=== PATIENT | female | born 1970 | race Caucasian/White ===

== ENCOUNTER 2016-04-17 10:54 | Emergency (ER) | payer MEDICAID ==
--- NOTE | 2016-04-17 11:24 | Emergency Department Record ---
History of Present Illness - General Chief complaint: Pain Stated complaint: RIB PAIN Time Seen by Provider: 04/17/16 11:16 Source: Patient, RN notes reviewed Mode of Arrival: Ambulatory - History of Present Illness Initial comments: neck and back pain and left lower leg pain. this pain started two days ago and she used norco twice aday for back pain. Onset/Timin -: Days(s) Location: Right, Other Severity scale (1-10): 10 Quality: Sharp Consistency: Constant Improves with: Nothing Worsens with: Other Associated Symptoms: Denies other symptoms - Related Data Previous Rx's Medication Instructions Recorded Naproxen [Naprosyn] 500 mg PO Q12H #20 tab. 04/17/16 Allergies Allergy/AdvReac Type Severity Reaction Status Date / Time penicillin V Allergy Severe ANAPHYLAXIS Unverified 04/07/16 08:12 Travel Screening - Travel/Exposure Within Last 30 Days Have you traveled within the last 30 days?: No Review of Systems Reviewed: No additional complaints except as noted below Constitutional: Reports: As per HPI. Denies: Chills, Fever, Malaise, Night sweats, Weakness, Weight change Eyes: Reports: As per HPI. Denies: Eye discharge, Eye pain, Photophobia, Vision change ENT: Reports: As per HPI. Denies: Congestion, Dental pain, Ear pain, Epistaxis , Hearing loss, Throat pain Respiratory: Reports: As per HPI. Denies: Cough, Dyspnea, Hemoptysis, Stridor, Wheezes Cardiovascular: Reports: As per HPI. Denies: Arrhythmia, Chest pain, Dyspnea on exertion, Edema, Murmurs, Orthopnea, Palpitations, Paroxysmal nocturnal dyspnea, Rheumatic Fever, Syncope Endocrine: Reports: As per HPI. Denies: Fatigue, Heat or cold intolerance, Polydipsia, Polyuria Gastrointestinal: Reports: As per HPI. Denies: Abdominal pain, Constipation, Diarrhea, Hematemesis, Hematochezia, Melena, Nausea, Vomiting Genitourinary: Reports: As per HPI. Denies: Abnormal menses, Discharge, Dyspareunia, Dysuria, Frequency, Hematuria, Incontinence, Retention, Urgency Musculoskeletal: Reports: As per HPI, Back pain. Denies: Arthralgia, Gout, Joint swelling, Myalgia, Neck pain Skin: Reports: As per HPI. Denies: Bruising, Change in color, Change in hair/ nails, Lesions, Pruritus, Rash Neurological: Reports: As per HPI. Denies: Abnormal gait, Confusion, Headache, Numbness, Paresthesias, Seizure, Tingling, Tremors, Vertigo, Weakness Psychiatric: Reports: As per HPI. Denies: Anxiety, Auditory hallucinations, Depression, Homicidal thoughts, Suicidal thoughts, Visual hallucinations Hematological/Lymphatic: Reports: As per HPI. Denies: Anemia, Blood Clots, Easy bleeding, Easy bruising, Swollen glands Past Medical History - SOCIAL HISTORY Smoking Status: Heavy tobacco smoker (>10/day) Alcohol Use: None Drug Use: None - RESPIRATORY Hx Respiratory Disorders: Yes Hx COPD: Yes - CARDIOVASCULAR Hx Cardio Disorders: Yes Hx Hypertension: Yes - NEURO Hx Neuro Disorders: Yes Hx CVA: Yes - GI Hx GI Disorders: No - Hx Genitourinary Disorders: No - ENDOCRINE Hx Endocrine Disorders: Yes Hx Thyroid Disease: Yes (hypothyroid) - MUSCULOSKELETAL Hx Musculoskeletal Disorders: Yes Hx Back Injury: Yes - PSYCH Hx Psych Problems: Yes Hx Anxiety: Yes Hx Behavior Problems: Yes (Bipolar as per [facility]) Hx Depression: Yes Comment:: Alcoholism - HEMATOLOGY/ONCOLOGY Hx Hematology/Oncology Disorders: No Family Medical History Any Significant Family History?: Yes Hx Cancer: Father Hx Diabetes: Grandparents Hx Heart Disease: Father Hx HTN: Father Physical Exam - General General Appearance: Alert, Oriented x3, Cooperative, No acute distress - Head Head exam: Normal inspection - Eye Eye exam: Normal appearance, PERRL Pupils: Normal accommodation - ENT ENT exam: Normal exam, Mucous membranes moist, Normal external ear exam, Normal orophraynx, TM's normal bilaterally Ear exam: Normal external inspection. negative: External canal tenderness Nasal Exam: Normal inspection. negative: Discharge, Sinus tenderness Mouth exam: Normal external inspection, Tongue normal Teeth exam: Normal inspection. negative: Dental caries Throat exam: Normal inspection. negative: Tonsillar erythema, Tonsillar exudate - Neck Neck exam: Normal inspection, Full ROM, Tenderness (muscles on the left side of neck ). negative: Lymphadenopathy, Meningismus - Respiratory Respiratory exam: Normal lung sounds bilaterally. negative: Respiratory distress - Cardiovascular Cardiovascular Exam: Regular rate, Normal rhythm, Normal heart sounds - GI/Abdominal GI/Abdominal exam: Soft, Normal bowel sounds. negative: Tenderness - Rectal Rectal exam: Deferred - exam: Deferred - Extremities Extremities exam: Normal inspection, Full ROM, Normal capillary refill. negative: Tenderness - Back Back exam: Reports: Normal inspection, Full ROM, Muscle spasm, Tenderness ( left lumbar pain and worse with palpation). Denies: Rash noted - Neurological Neurological exam: Alert, Normal gait, Oriented X3, Reflexes normal - Psychiatric Psychiatric exam: Normal affect, Normal mood - Skin Skin exam: Dry, Intact, Normal color, Warm Course Vital Signs 04/17/16 10:59 Temperature 98.0 F Pulse Rate 109 H Respiratory 20 Rate Blood Pressure 140/96 Pulse Ox 96 Medical Decision Making - Lab Data Result diagrams: 04/17/16 11:40 Disposition Clinical Impression: Lumbar strain Qualifiers: Encounter type: initial encounter Qualified Code(s): S39.012A - Strain of muscle, fascia and tendon of lower back, initial encounter Cervical strain Qualifiers: Encounter type: initial encounter Qualified Code(s): S16.1XXA - Strain of muscle, fascia and tendon at neck level, initial encounter Disposition: Home, Self-Care Condition: (1) Good Additional Instructions: heat to neck and back follow up with family in 3 days stop meloxicam (mobic) while taking naprosyn Prescriptions: Naproxen [Naprosyn] 500 mg PO Q12H #20 tab.dr Forms: Patient Portal Access Time of Disposition: 13:35
[2016-04-17] MEDS: 0.9 % SODIUM CHLORIDE 1000ML 1,000 ML IV PRN (11:45)
[2016-04-17] MEDS: KETOROLAC 30 MG/ML VIAL IVP ONE (11:45)
[2016-04-17 12:02] LABS: BASO % 0.3 % (0-6); EOS % 1.3 % (0-6); HEMATOCRIT 46.5 % (35.0-47.0); HEMOGLOBIN 15.3 gm/dl (11.6-16.0); LYMPH % 24.2 % (16-45); MEAN CELL VOLUME 97.1 fl (81-97); MEAN CORPUSCULAR HEMOGLOBIN 31.9 pg (27-33); MEAN CORPUSCULAR HGB CONC 32.9 g/dl (32-36); MEAN PLATELET VOLUME 9.8 fl (7.4-10.4); MONO % 9.2 % (0-9); PLATELET COUNT 179 K/uL (130-400); RED BLOOD COUNT 4.79 M/uL (3.80-5.40); RED CELL DISTRIBUTION WIDTH 13.8 % (11.5-14.5); WHITE BLOOD COUNT W/O DIFF 7.5 K/uL (4.2-12.2)
--- NOTE | 2016-04-17 14:05 | Emergency Department Record ---
History of Present Illness - General Chief complaint: Pain Stated complaint: RIB PAIN Time Seen by Provider: 04/17/16 11:16 Source: Patient, RN notes reviewed Mode of Arrival: Ambulatory - History of Present Illness Initial comments: First xchart has some of another persons findings on it. Patient has nasal congestion and dry cough and pain is worse with palpation and rotation. Onset/Timin -: Days(s) Location: Right, Other Severity scale (1-10): 10 Quality: Sharp Consistency: Constant Improves with: Nothing Worsens with: Other Associated Symptoms: Denies other symptoms - Related Data Previous Rx's Medication Instructions Recorded Azithromycin [Zithromax] 500 mg PO DAILY #7 tablet 04/17/16 Naproxen [Naprosyn] 500 mg PO Q12H #20 tab 04/17/16 Allergies Allergy/AdvReac Type Severity Reaction Status Date / Time penicillin V Allergy Severe ANAPHYLAXIS Unverified 04/07/16 08:12 Travel Screening - Travel/Exposure Within Last 30 Days Have you traveled within the last 30 days?: No Review of Systems Constitutional: Reports: As per HPI. Denies: Chills, Fever, Malaise, Night sweats, Weakness, Weight change Eyes: Reports: As per HPI. Denies: Eye discharge, Eye pain, Photophobia, Vision change ENT: Reports: As per HPI, Congestion. Denies: Dental pain, Ear pain, Epistaxis , Hearing loss, Throat pain Respiratory: Reports: As per HPI, Cough. Denies: Dyspnea, Hemoptysis, Stridor, Wheezes Cardiovascular: Reports: As per HPI. Denies: Arrhythmia, Chest pain, Dyspnea on exertion, Edema, Murmurs, Orthopnea, Palpitations, Paroxysmal nocturnal dyspnea, Rheumatic Fever, Syncope Endocrine: Reports: As per HPI. Denies: Fatigue, Heat or cold intolerance, Polydipsia, Polyuria Gastrointestinal: Reports: As per HPI. Denies: Abdominal pain, Constipation, Diarrhea, Hematemesis, Hematochezia, Melena, Nausea, Vomiting Genitourinary: Reports: As per HPI. Denies: Abnormal menses, Discharge, Dyspareunia, Dysuria, Frequency, Hematuria, Incontinence, Retention, Urgency Musculoskeletal: Reports: As per HPI, Back pain. Denies: Arthralgia, Gout, Joint swelling, Myalgia, Neck pain Skin: Reports: As per HPI. Denies: Bruising, Change in color, Change in hair/ nails, Lesions, Pruritus, Rash Neurological: Reports: As per HPI. Denies: Abnormal gait, Confusion, Headache, Numbness, Paresthesias, Seizure, Tingling, Tremors, Vertigo, Weakness Psychiatric: Reports: As per HPI. Denies: Anxiety, Auditory hallucinations, Depression, Homicidal thoughts, Suicidal thoughts, Visual hallucinations Hematological/Lymphatic: Reports: As per HPI. Denies: Anemia, Blood Clots, Easy bleeding, Easy bruising, Swollen glands Past Medical History - SOCIAL HISTORY Smoking Status: Heavy tobacco smoker (>10/day) Alcohol Use: None Drug Use: None - RESPIRATORY Hx Respiratory Disorders: Yes Hx COPD: Yes - CARDIOVASCULAR Hx Cardio Disorders: Yes Hx Hypertension: Yes - NEURO Hx Neuro Disorders: Yes Hx CVA: Yes - GI Hx GI Disorders: No - Hx Genitourinary Disorders: No - ENDOCRINE Hx Endocrine Disorders: Yes Hx Thyroid Disease: Yes (hypothyroid) - MUSCULOSKELETAL Hx Musculoskeletal Disorders: Yes Hx Back Injury: Yes - PSYCH Hx Psych Problems: Yes Hx Anxiety: Yes Hx Behavior Problems: Yes (Bipolar as per [facility]) Hx Depression: Yes Comment:: Alcoholism - HEMATOLOGY/ONCOLOGY Hx Hematology/Oncology Disorders: No Family Medical History Any Significant Family History?: Yes Hx Cancer: Father Hx Diabetes: Grandparents Hx Heart Disease: Father Hx HTN: Father Physical Exam - General General Appearance: Alert, Oriented x3, Cooperative, No acute distress - Head Head exam: Normal inspection - Eye Eye exam: Normal appearance, PERRL Pupils: Normal accommodation - ENT ENT exam: Normal exam, Mucous membranes moist, Normal external ear exam, Normal orophraynx, TM's normal bilaterally Ear exam: Normal external inspection. negative: External canal tenderness Nasal Exam: Normal inspection. negative: Discharge, Sinus tenderness Mouth exam: Normal external inspection, Tongue normal Teeth exam: Normal inspection. negative: Dental caries Throat exam: Normal inspection. negative: Tonsillar erythema, Tonsillar exudate - Neck Neck exam: Normal inspection, Full ROM. negative: Tenderness - Respiratory Respiratory exam: Normal lung sounds bilaterally. negative: Respiratory distress - Cardiovascular Cardiovascular Exam: Regular rate, Normal rhythm, Normal heart sounds - GI/Abdominal GI/Abdominal exam: Soft, Normal bowel sounds. negative: Tenderness - Rectal Rectal exam: Deferred - exam: Deferred - Extremities Extremities exam: Normal inspection, Full ROM, Normal capillary refill. negative: Tenderness - Back Back exam: Reports: Normal inspection, Full ROM. Denies: Muscle spasm, Rash noted, Tenderness - Neurological Neurological exam: Alert, Normal gait, Oriented X3, Reflexes normal - Psychiatric Psychiatric exam: Normal affect, Normal mood - Skin Skin exam: Dry, Intact, Normal color, Warm Course Vital Signs 04/17/16 10:59 Temperature 98.0 F Pulse Rate 109 H Respiratory 20 Rate Blood Pressure 140/96 Pulse Ox 96 Medical Decision Making - Data Complexity MDM Data: X-Ray Ordered and/or Reviewed (chest xray neg) - Lab Data Result diagrams: 04/17/16 11:40 Lab Results 04/17/16 Range/Units 11:40 WBC 7.5 (4.2-12.2) K/uL RBC 4.79 (3.80-5.40) M/uL Hgb 15.3 (11.6-16.0) gm/dl Hct 46.5 (35.0-47.0) % MCV 97.1 H (81-97) fl MCH 31.9 (27-33) pg MCHC 32.9 (32-36) g/dl RDW 13.8 (11.5-14.5) % Plt Count 179 (130-400) K/uL MPV 9.8 (7.4-10.4) fl Gran % 65.0 (47-80) % Lymphocytes % 24.2 (16-45) % Monocytes % 9.2 H (0-9) % Eosinophils % 1.3 (0-6) % Basophils % 0.3 (0-6) % Disposition Clinical Impression: Bronchitis, Chest wall pain Disposition: Home, Self-Care Condition: (1) Good Instructions: Acute Bronchitis (ED) Additional Instructions: follow up with family in 3 days stop meloxicam (mobelizabeth) while taking naprosyn Prescriptions: Naproxen [Naprosyn] 500 mg PO Q12H #20 tab. Azithromycin [Zithromax] 500 mg PO DAILY #7 tablet Forms: Patient Portal Access Time of Disposition: 14:08
--- NOTE | 2016-04-21 14:37 | RADIOLOGY REPORT ---
EXAM: CHEST, TWO VIEWS HISTORY: CHEST PAIN. TECHNIQUE: Frontal and lateral views of chest were performed. FINDINGS: The heart size is normal. The lung maddox are clear. The osseous structures are normal. IMPRESSION: NEGATIVE CHEST EXAMINATION. JOB NUMBER: [id number] MTDD
== END 2016-04-17 14:38 | disposition home or self-care (01) ==
LOC: ER 10:54
DX: J20.9 Acute bronchitis, unspecified (principal); R07.89 Other chest pain; I10 Essential (primary) hypertension; F17.210 Nicotine dependence, cigarettes, uncomplicated
CPT/HCPCS: 99284 ×2; 96374; 85025; 71020; J1885

== ENCOUNTER 2016-09-21 17:09 | Emergency (ER) | payer MEDICAID ==
[2016-09-21] MEDS ORDERED: 0.9 % SODIUM CHLORIDE 1000ML 1,000 ML IV PRN (18:01)
--- NOTE | 2016-09-21 18:01 | Emergency Department Record ---
History of Present Illness - General Chief Complaint: Abdominal Pain Stated Complaint: THINKS I RUPTURED MY BOWEL Time Seen by Provider: 09/21/16 17:49 Mode of Arrival: Ambulatory - History of Present Illness Initial Comments: perirectal abscess and very pain to the touch and starting to point. Abdomen is soft and no guarding Onset/Timin -: Days(s) Improves With: Bowel movement Worsens With: Movement Associated Symptoms: Constipation - Related Data LMP (females 10-50): 1 month ago Patient : No Previous Rx's Medication Instructions Recorded Clindamycin HCl 300 mg PO TID #30 capsule 09/21/16 Hydrocodone/Acetaminophen [[place] 1 each PO Q6HR #20 tablet 09/21/16 5-325 Tablet] Allergies Allergy/AdvReac Type Severity Reaction Status Date / Time penicillin V Allergy Severe ANAPHYLAXIS Verified 09/21/16 17:16 Travel Screening - Travel/Exposure Within Last 30 Days Have you traveled within the last 30 days?: No - Travel/Exposure Within Last Year Have you traveled outside the [place] in the last year?: No - Additonal Travel Details Have you been exposed to anyone with a communicable illness?: No - Travel Symptoms Symptom Screening: None Review of Systems Reviewed: No additional complaints except as noted below Constitutional: Reports: As per HPI. Denies: Chills, Fever, Malaise, Night sweats, Weakness, Weight change Eyes: Reports: As per HPI. Denies: Eye discharge, Eye pain, Photophobia, Vision change ENT: Reports: As per HPI. Denies: Congestion, Dental pain, Ear pain, Epistaxis , Hearing loss, Throat pain Respiratory: Reports: As per HPI. Denies: Cough, Dyspnea, Hemoptysis, Stridor, Wheezes Cardiovascular: Reports: As per HPI. Denies: Arrhythmia, Chest pain, Dyspnea on exertion, Edema, Murmurs, Orthopnea, Palpitations, Paroxysmal nocturnal dyspnea, Rheumatic Fever, Syncope Endocrine: Reports: As per HPI. Denies: Fatigue, Heat or cold intolerance, Polydipsia, Polyuria Gastrointestinal: Reports: As per HPI. Denies: Abdominal pain, Constipation, Diarrhea, Hematemesis, Hematochezia, Melena, Nausea, Vomiting Genitourinary: Reports: As per HPI. Denies: Abnormal menses, Discharge, Dyspareunia, Dysuria, Frequency, Hematuria, Incontinence, Retention, Urgency Musculoskeletal: Reports: As per HPI. Denies: Arthralgia, Back pain, Gout, Joint swelling, Myalgia, Neck pain Skin: Reports: As per HPI. Denies: Bruising, Change in color, Change in hair/ nails, Lesions, Pruritus, Rash Neurological: Reports: As per HPI. Denies: Abnormal gait, Confusion, Headache, Numbness, Paresthesias, Seizure, Tingling, Tremors, Vertigo, Weakness Psychiatric: Reports: As per HPI. Denies: Anxiety, Auditory hallucinations, Depression, Homicidal thoughts, Suicidal thoughts, Visual hallucinations Hematological/Lymphatic: Reports: As per HPI. Denies: Anemia, Blood Clots, Easy bleeding, Easy bruising, Swollen glands Past Medical History - SOCIAL HISTORY Smoking Status: Heavy tobacco smoker (>10/day) Alcohol Use: Occassional Drug Use: None - RESPIRATORY Hx Respiratory Disorders: Yes Hx COPD: Yes - CARDIOVASCULAR Hx Cardio Disorders: Yes Hx Hypertension: Yes - NEURO Hx Neuro Disorders: Yes Hx CVA: Yes - GI Hx GI Disorders: No - Hx Genitourinary Disorders: No - ENDOCRINE Hx Endocrine Disorders: Yes Hx Thyroid Disease: Yes (hypothyroid) - MUSCULOSKELETAL Hx Musculoskeletal Disorders: Yes Hx Back Injury: Yes - PSYCH Hx Psych Problems: Yes Comment:: Alcoholism - HEMATOLOGY/ONCOLOGY Hx Hematology/Oncology Disorders: No Family Medical History Any Significant Family History?: Yes Hx Cancer: Father Hx Diabetes: Grandparents Hx Heart Disease: Father Hx HTN: Father Physical Exam - General General Appearance: Alert, Oriented x3, Cooperative, No acute distress - Head Head exam: Normal inspection - Eye Eye exam: Normal appearance, PERRL Pupils: Normal accommodation - ENT ENT exam: Normal exam, Mucous membranes moist, Normal external ear exam, Normal orophraynx, TM's normal bilaterally Ear exam: Normal external inspection. negative: External canal tenderness Nasal Exam: Normal inspection. negative: Discharge, Sinus tenderness Mouth exam: Normal external inspection, Tongue normal Teeth exam: Normal inspection. negative: Dental caries Throat exam: Normal inspection. negative: Tonsillar erythema, Tonsillar exudate - Neck Neck exam: Normal inspection, Full ROM. negative: Tenderness - Respiratory Respiratory exam: Normal lung sounds bilaterally. negative: Respiratory distress - Cardiovascular Cardiovascular Exam: Regular rate, Normal rhythm, Normal heart sounds - GI/Abdominal GI/Abdominal exam: Soft, Normal bowel sounds. negative: Tenderness - Rectal Rectal exam: Other (no impaction and no obvious extension into rectum). negative: Normal inspection (perirectal abscess and no extension into rectum by digital exam) - exam: Deferred - Extremities Extremities exam: Normal inspection, Full ROM, Normal capillary refill. negative: Tenderness - Back Back exam: Reports: Normal inspection, Full ROM. Denies: Muscle spasm, Rash noted, Tenderness - Neurological Neurological exam: Alert, Normal gait, Oriented X3, Reflexes normal - Psychiatric Psychiatric exam: Normal affect, Normal mood - Skin Skin exam: Dry, Intact, Normal color, Warm Course Vital Signs 09/21/16 17:17 Temperature 98 F Pulse Rate 119 H Respiratory 20 Rate Blood Pressure 118/99 Pulse Ox 96 1% lidocaine with epi I an D of abscess drainaged purulent material about 50 ml under pressure and sprayed 8 inches packing placked and dressed sitz bath BID and PRN with BM's Disposition Clinical Impression: Abscess Disposition: Home, Self-Care Condition: (1) Good Instructions: Anorectal Abscess and Anal Fistula (ED) Additional Instructions: follow up with family in 2 days. or if worse return to ED or if you can not get in to see Dr. Mrea Prescriptions: Hydrocodone/Acetaminophen [[place] 5-325 Tablet] 1 each PO Q6HR #20 tablet Clindamycin HCl 300 mg PO TID #30 capsule Forms: Patient Portal Access Time of Disposition: 18:40
[2016-09-21] MEDS ORDERED: HYDROMORPHONE HCL 1 MG/ML CPJ IVP ONE (18:22)
== END 2016-09-21 19:12 | disposition home or self-care (01) ==
LOC: ER 17:09
DX: K61.1 Rectal abscess (principal)
CPT/HCPCS: 46040 ×2; 99284 ×2; 96374; J1170

== ENCOUNTER 2016-09-23 16:43 | Emergency (ER) | payer MEDICAID ==
--- NOTE | 2016-09-23 17:03 | Emergency Department Record ---
History of Present Illness - General Chief Complaint: Recheck - Other Stated Complaint: RE CHECK Time Seen by Provider: 09/23/16 16:46 Source: Patient Mode of arrival: Ambulatory Limitations: No limitations - History of Present Illness Initial Comments: 46 yo female returns to ED for evaluation of a delon-rectal abscess that underwent drainage and subsequent packing 2 days ago. Patient reports that the area is still very painful, denies fevers/chills. Patient reports that she has been taking Clindamycin since undergoing I & D. Patient denies h/o DM. Patient reports that she is her for packing removal. MD Complaint: Wound re-check Onset/Timin -: Days(s) Initial Visit For: Abscess Returns Today for: Wound recheck Symptoms Since Prior Visit: No new symptoms Associated Symptoms: None - Related Data Previous Rx's Medication Instructions Recorded Clindamycin HCl 300 mg PO TID #30 capsule 09/21/16 Hydrocodone/Acetaminophen [[place] 1 each PO Q6HR #20 tablet 09/21/16 5-325 Tablet] Ciprofloxacin HCl [Cipro] 500 mg PO Q12HR #20 tablet 09/23/16 Metronidazole [Flagyl] 500 mg PO TID #30 tablet 09/23/16 Allergies Allergy/AdvReac Type Severity Reaction Status Date / Time penicillin V Allergy Severe ANAPHYLAXIS Verified 09/23/16 16:47 Travel Screening - Travel/Exposure Within Last 30 Days Have you traveled within the last 30 days?: No Review of Systems Constitutional: Denies: Chills, Fever, Malaise, Night sweats Eyes: Denies: Eye discharge, Eye pain ENT: Denies: Congestion, Ear pain Respiratory: Denies: Cough, Dyspnea Cardiovascular: Denies: Chest pain, Dyspnea on exertion Endocrine: Denies: Fatigue, Heat or cold intolerance Gastrointestinal: Reports: Other (rectal pain). Denies: Abdominal pain, Nausea , Vomiting Genitourinary: Denies: Incontinence, Retention Musculoskeletal: Denies: Arthralgia, Back pain Skin: Denies: Bruising, Change in color Neurological: Denies: Abnormal gait, Confusion, Headache, Seizure Psychiatric: Denies: Anxiety Hematological/Lymphatic: Denies: Anemia, Blood Clots Past Medical History - SOCIAL HISTORY Smoking Status: Heavy tobacco smoker (>10/day) Alcohol Use: None Drug Use: None - RESPIRATORY Hx Respiratory Disorders: Yes Hx COPD: Yes - CARDIOVASCULAR Hx Cardio Disorders: Yes Hx Hypertension: Yes - NEURO Hx Neuro Disorders: Yes Hx CVA: Yes - GI Hx GI Disorders: No - Hx Genitourinary Disorders: No - ENDOCRINE Hx Endocrine Disorders: Yes Hx Thyroid Disease: Yes (hypothyroid) - MUSCULOSKELETAL Hx Musculoskeletal Disorders: Yes Hx Back Injury: Yes - PSYCH Hx Psych Problems: Yes Comment:: Alcoholism - HEMATOLOGY/ONCOLOGY Hx Hematology/Oncology Disorders: No Family Medical History Any Significant Family History?: Yes Hx Cancer: Father Hx Diabetes: Grandparents Hx Heart Disease: Father Hx HTN: Father Physical Exam - General General Appearance: Alert, Oriented x3, Cooperative, Mild distress Limitations: No limitations - Head Head exam: Atraumatic, Normocephalic, Normal inspection Head exam detail: negative: Abrasion, Contusion, Cantor's sign, General tenderness, Hematoma, Laceration - Eye Eye exam: Normal appearance. negative: Conjunctival injection, Periorbital swelling, Periorbital tenderness, Scleral icterus - ENT Ear exam: negative: Auricular hematoma, Auricular trauma Nasal Exam: negative: Active bleeding, Discharge, Dried blood Mouth exam: negative: Drooling, Laceration, Muffled voice, Tongue elevation - Neck Neck exam: Normal inspection. negative: Meningismus, Tenderness - Respiratory Respiratory exam: Normal lung sounds bilaterally. negative: Rales, Respiratory distress, Rhonchi, Stridor - Cardiovascular Cardiovascular Exam: Regular rate, Normal rhythm, Normal heart sounds - GI/Abdominal GI/Abdominal exam: Soft. negative: Rebound, Rigid, Tenderness - Rectal Rectal exam: Other (Packing removed from the delon-rectal region, no obvious induration or fluctuance is present on examination) - exam: Deferred - Extremities Extremities exam: negative: Pedal edema, Tenderness - Back Back exam: Denies: CVA tenderness (R), CVA tenderness (L) - Neurological Neurological exam: Alert, Normal gait, Oriented X3 - Psychiatric Psychiatric exam: Normal affect, Normal mood - Skin Skin exam: Normal color. negative: Abrasion Type of lesion: negative: abrasion Course Vital Signs 09/23/16 16:48 Temperature 97.9 F Pulse Rate 108 H Respiratory 20 Rate Blood Pressure 104/68 Pulse Ox 94 L - Reevaluation(s) Reevaluation #1: 09/23/16 17:30 Labs reviewed and are grossly unremarkable for an acute process. Reevaluation #2: 09/23/16 18:32 CT Pelvis: Small posterior, delon-rectal abscess measuring 1.3 x 1.0 cm. Reevaluation #3: 09/23/16 19:[address] imaging findings were discussed with Dr. Dejesus, recommends antibiotic change to Cipro and Flagyl with instructions to return for any worsening of her symptoms. Patient was counseled to return for any fevers, chills, nausea, vomiting, or worsening of her pain symptoms. Medical Decision Making - Lab Data Result diagrams: 09/23/16 17:00 09/23/16 17:00 Disposition Disposition: Discharge Clinical Impression: Delon-rectal abscess Disposition: Home, Self-Care Condition: (2) Stable Instructions: Rectal Abscess (ED) Additional Instructions: Return to ED if your symptoms worsen or if you have any concerns. Cipro and Flagyl as directed. Follow-up with Dr. Gutierrez next week, call for appointment. Prescriptions: Ciprofloxacin HCl [Cipro] 500 mg PO Q12HR #20 tablet Metronidazole [Flagyl] 500 mg PO TID #30 tablet Referrals: Alfredo Gutierrez [DOCTOR OF OSTEOPATH] - Forms: Patient Portal Access Time of Disposition: 19:17
[2016-09-23 17:14] LABS: BASO % 0.5 % (0-6); EOS % 2.8 % (0-6); GRAN % 62.7 % (47-80); HEMATOCRIT 42.7 % (35.0-47.0); HEMOGLOBIN 13.5 gm/dl (11.6-16.0); LYMPH % 24.6 % (16-45); MEAN CELL VOLUME 94.9 fl (81-97); MEAN CORPUSCULAR HGB CONC 31.6 g/dl (32-36); MEAN PLATELET VOLUME 9.7 fl (7.4-10.4); MONO % 9.4 % (0-9); PLATELET COUNT 246 K/uL (130-400); RED CELL DISTRIBUTION WIDTH 13.6 % (11.5-14.5); WHITE BLOOD COUNT W/O DIFF 6.2 K/uL (4.2-12.2)
[2016-09-23] MEDS ORDERED: ONDANSETRON HCL IV 4 MG/2 ML VIAL IVP ONE (17:24)
[2016-09-23] MEDS ORDERED: MORPHINE SULFATE 5 MG/ML PFS IVP ONE (17:24)
[2016-09-23 17:29] LABS: ALBUMIN 3.1 gm/dL (3.5-5.0); ALKALINE PHOSPHATASE 65 U/L (38-126); ALT/SGPT 20 U/L (9-52); AST/SGOT 18 U/L (14-36); BILIRUBIN,TOTAL 0.26 mg/dL (0.2-1.3); BLOOD UREA NITROGEN 14 mg/dL (7-17); CREATININE 0.6 mg/dL (0.52-1.04); EST GLOMERULAR FILTRATION RATE > 60 ml/min; GLUCOSE,RANDOM 137 mg/dL (70-110); TOTAL PROTEIN 6.1 gm/dL (6.3-8.2)
--- NOTE | 2016-09-25 14:24 | CT SCAN REPORT ---
EXAM: CT SCAN PELVIS W CONTRAST HISTORY: PERIRECTAL ABSCESS. FOLLOW-UP. TECHNIQUE: Standard CT imaging of the pelvis was performed with intravenous contrast. 100 mL of Omnipaque-300 were administered. COMPARISON: None. FINDINGS: There are a few scattered diverticula within the sigmoid region with no evidence for acute diverticulitis. The remaining visualized large and small bowel loops including the appendix are normal. There is no pneumoperitoneum or ascites. The uterus and adnexa are normal, as is the urinary bladder. Degenerative changes are present within the lumbar spine and hips, left greater than right. There are no acute osseous abnormalities. There is a small fluid collection posterior to the distal rectum measuring 1.3 x 1 cm. This contains fluid and a small amount of air consistent with the history of perirectal abscess. There are mild surrounding inflammatory changes. No other focal inflammatory process is identified. IMPRESSION: 1. RESIDUAL POSTERIOR PERIRECTAL ABSCESS MEASURING 13 X 10 MM. 2. NO ACUTE INTRAPELVIC PATHOLOGY. 3. MINOR SIGMOID DIVERTICULOSIS WITH NO DIVERTICULITIS. JOB [facility]BER: [id number] [facility]
== END 2016-09-23 19:29 | disposition home or self-care (01) ==
LOC: ER 16:43
DX: K61.1 Rectal abscess (principal)
CPT/HCPCS: 99284 ×2; 96374; 96375; 85025; 80053; 72193; Q9967; J2405; J2270

== ENCOUNTER 2016-10-31 14:54 | Emergency (ER) | payer MEDICAID ==
--- NOTE | 2016-10-31 15:12 | Emergency Department Record ---
History of Present Illness - General Chief Complaint: Fall Injury Stated Complaint: FALL Time Seen by Provider: 10/31/16 15:04 Source: Patient Mode of Arrival: Ambulatory Limitations: No limitations - History of Present Illness Initial Comments: 46 yo female presents after a fall on Monday evening down about 5 steps. She did not have any LOC. She did hit her head. No neck pain. She has persistent right shoulder and left hip pain. She has had a prior injury to the shoulder. She is ambulatory. No chest, abdominal or back pain. She has seen Dr Paez and her PCP for an occult fracture of the shoulder in the past. MD Complaint: Fall -: Days(s) (2) Fall From: Down stairs (#) (10) When Fall Occurred: # Days [employer] (3) Fall Witnessed: No Place Fall Occurred: Home Loss of Consciousness: None Prolonged Down Time?: No Symptoms Prior to Fall: None Location: Head, Other (right shoulder, left hip) Location - Extremities: Left: Thigh, Right: Shoulder Severity: Moderate Quality: Aching Associated Symptoms: Denies - [place] Coma Scale Eye Response: (4) Open spontaneously Motor Response: (6) Obeys commands Verbal Response: (5) Oriented [place] Total: 15 - Related Data Previous Rx's Medication Instructions Recorded Hydrocodone/Acetaminophen [[place] 1 each PO Q8H PRN #20 tablet 10/31/16 5-325 Tablet] Allergies Allergy/AdvReac Type Severity Reaction Status Date / Time penicillin V Allergy Severe ANAPHYLAXIS Verified 10/31/16 15:08 Review of Systems Constitutional: Denies: Chills, Fever, Malaise, Weakness Eyes: Denies: Eye discharge, Eye pain, Photophobia, Vision change ENT: Denies: Congestion, Throat pain Respiratory: Denies: Cough, Dyspnea, Hemoptysis, Stridor, Wheezes Cardiovascular: Denies: Chest pain, Palpitations, Syncope Endocrine: Denies: Fatigue Gastrointestinal: Denies: Abdominal pain, Diarrhea, Nausea, Vomiting Genitourinary: Denies: Dysuria, Urgency Musculoskeletal: Reports: As per HPI, Arthralgia, Back pain (chronic, no new or changing pain), Myalgia Skin: Reports: As per HPI, Bruising. Denies: Change in color Neurological: Denies: Confusion, Headache Psychiatric: Denies: Anxiety Hematological/Lymphatic: Denies: Blood Clots, Easy bleeding, Easy bruising, Swollen glands Past Medical History - SOCIAL HISTORY Smoking Status: Heavy tobacco smoker (>10/day) Drug Use: None - RESPIRATORY Hx Respiratory Disorders: Yes Hx COPD: Yes - CARDIOVASCULAR Hx Cardio Disorders: Yes Hx Hypertension: Yes - NEURO Hx Neuro Disorders: Yes Hx CVA: Yes - GI Hx GI Disorders: No - Hx Genitourinary Disorders: No - ENDOCRINE Hx Endocrine Disorders: Yes Hx Thyroid Disease: Yes (hypothyroid) - MUSCULOSKELETAL Hx Musculoskeletal Disorders: Yes Hx Back Injury: Yes - PSYCH Hx Psych Problems: Yes Comment:: Alcoholism - HEMATOLOGY/ONCOLOGY Hx Hematology/Oncology Disorders: No Family Medical History Hx Cancer: Father Hx Diabetes: Grandparents Hx Heart Disease: Father Hx HTN: Father Physical Exam - General General Appearance: Alert, Oriented x3, Cooperative, No acute distress Limitations: No limitations - Head Head exam: Normal inspection. negative: Atraumatic Head exam detail: Contusion (top of head, slight contusion) - Eye Eye exam: Normal appearance, PERRL. negative: Conjunctival injection, Periorbital swelling - ENT ENT exam: Normal exam Ear exam: Normal external inspection Nasal Exam: Normal inspection Mouth exam: Normal external inspection - Neck Neck exam: Normal inspection, Full ROM. negative: Tenderness - Respiratory Respiratory exam: Normal lung sounds bilaterally. negative: Respiratory distress - Cardiovascular Cardiovascular Exam: Regular rate, Normal rhythm, Normal heart sounds - GI/Abdominal GI/Abdominal exam: Soft. negative: Tenderness - Rectal Rectal exam: Deferred - exam: Deferred - Extremities Extremities exam: Full ROM, Tenderness. negative: Normal inspection Image of Full Body: 1 - bruise to the top of shoulder, new full ROM but associated pain, int and ext rotation intact 2 - tender laterally, full ROM, bears weight - Back Back exam: Reports: Normal inspection, Full ROM. Denies: CVA tenderness (R), CVA tenderness (L), Muscle spasm, Paraspinal tenderness, Rash noted, Tenderness , Vertebral tenderness - Neurological Neurological exam: Alert, Normal gait, Oriented X3, Reflexes normal - Psychiatric Psychiatric exam: Normal affect, Normal mood. negative: Agitated, Anxious - Skin Skin exam: Other (bruising as noted above) Course - Reevaluation(s) Reevaluation #1: The reports of the head, neck, shoulder and hip were reviewed. No acute injuries or fractures noted. She has degenerative changes. 10/31/16 16:09 Disposition Disposition: Discharge Clinical Impression: Contusion of shoulder, right Qualifiers: Encounter type: initial encounter Qualified Code(s): S40.011A - Contusion of right shoulder, initial encounter Contusion of hip, left Qualifiers: Encounter type: initial encounter Qualified Code(s): S70.02XA - Contusion of left hip, initial encounter Contusion of head Qualifiers: Encounter type: initial encounter Contusion of head detail: scalp Qualified Code(s): S00.03XA - Contusion of scalp, initial encounter Condition: (1) Good Instructions: Contusion in Adults (ED) Additional Instructions: Call your doctor tomorrow for close follow up of your injuries Follow up with Dr Paez as directed Return if worse, new pain or any concerns or questions Prescriptions: Hydrocodone/Acetaminophen [Chamisal 5-325 Tablet] 1 each PO Q8H PRN #20 tablet PRN Reason: Pain - General Forms: Patient Portal Access Time of Disposition: 16:10 Quality - Quality Measures Quality Measures: N/A - Blood Pressure Screening View Details: Yes Blood Pressure Classification: Hypertensive Reading Systolic Measurement: 144 Diastolic Measurement: 96 Screening for High Blood Pressure: < Pre-Hypertensive BP, F/U Documented > [ G8950] Pre-Hypertensive Follow-up Interventions: Referral to alternative/primary care provider.
--- NOTE | 2016-11-01 14:28 | CT SCAN REPORT ---
EXAM: HEAD CT WITHOUT CONTRAST HISTORY: FELL DOWN STEPS. NO LOSS OF CONSCIOUSNESS. TECHNIQUE: Contiguous axial images from the cerebral convexities to the foramen magnum were obtained without contrast. Comparison: None. Encounter: Initial. FINDINGS: The brain volume is normal. No acute intracranial hemorrhage, mass effect, or midline shift. No CT evidence of acute infarct. The ventricles, basal cisterns and sulci are within normal limits. The osseous structures, soft tissues, and paranasal sinuses are unremarkable. IMPRESSION: NORMAL HEAD CT. J[facility]BER: [id number] [facility]
--- NOTE | 2016-11-01 14:56 | RADIOLOGY REPORT ---
EXAM: RIGHT SHOULDER, THREE VIEWS HISTORY: FELL DOWN STAIRS. RIGHT SHOULDER PAIN. TECHNIQUE: Three views of the right shoulder were obtained. Comparison: None. Encounter: Initial. FINDINGS: No bone or joint abnormality. IMPRESSION: NEGATIVE RIGHT SHOULDER EXAMINATION. JOB NUMBER: [id number] [facility]
--- NOTE | 2016-11-01 14:59 | RADIOLOGY REPORT ---
EXAM: LEFT HIP, THREE VIEWS HISTORY: FELL DOWN STAIRS, ACUTE LEFT HIP INJURY AND PAIN. TECHNIQUE: Three views of the left hip were obtained. Comparison: CT of the pelvis 08/27/16. Encounter: Initial. FINDINGS: The sacrum is intact. The sacroiliac joints are normal. There is severe osteoarthritic change of the left femoroacetabular joint with joint space narrowing and prominent osteophytes. No acute fracture. IMPRESSION: 1. NO ACUTE FRACTURE OF THE LEFT HIP. 2. SEVERE OSTEOARTHRITIC CHANGE OF THE LEFT FEMOROACETABULAR JOINT, UNCHANGED. [facility]: [id number] [facility]
--- NOTE | 2016-11-01 15:05 | CT SCAN REPORT ---
EXAM: CERVICAL SPINE CT WITH TWO DIMENSIONAL REFORMATS HISTORY: FELL DOWN STAIRS TWO DAYS AGO, HEAD AND NECK INJURY, NECK PAIN. TECHNIQUE: Contiguous axial images from the skull base to the T3 level were obtained without contrast. Sagittal and coronal two dimensional reformatted images were obtained for better anatomic delineation. Comparison: None. FINDINGS: Moderate reversal of normal cervical lordosis. The C1-C2 articulation appears appropriate and the odontoid is intact. No acute fracture or subluxation at any level. There is moderate to severe degenerative disk disease from C4-C5 to C6-C7 manifested by disk space narrowing and end plate osteophytes. Mild disk disease at the remaining levels. No severe narrowing of the osseous central canal at any level. Facet and uncovertebral joint hypertrophy mostly in the lower cervical spine most pronounced at C6-C7 and C7-T1 where there is moderate to severe right and moderate left neural foraminal stenosis. The soft tissues of the cervical region reveal moderate calcification of the right carotid bulb and mild calcification of the left carotid bulb. The lung apices are clear. IMPRESSION: 1. NO ACUTE FRACTURE OR SUBLUXATION OF THE CERVICAL SPINE. 2. REVERSAL OF THE NORMAL CERVICAL LORDOSIS WITH DISK DISEASE MOST PRONOUNCED FROM C4-C5 TO C6-C7. 3. VARYING DEGREES OF NEURAL FORAMINAL STENOSIS ABOVE. J[facility]BER: [id number] [facility]
== END 2016-10-31 16:46 | disposition home or self-care (01) ==
LOC: ER 14:54
DX: S40.011A Contusion of right shoulder, initial encounter (principal); S70.02XA Contusion of left hip, initial encounter; S00.03XA Contusion of scalp, initial encounter; M54.2 Cervicalgia; W10.9XXA Fall (on) (from) unspecified stairs and steps, initial encounter; Y92.009 Unspecified place in unspecified non-institutional (private) residence as the place of occurrence of the external cause
CPT/HCPCS: 70450; 72125; 99283; 99284

== ENCOUNTER 2018-01-18 13:31 | Day surgery (SDC) | payer MEDICAID ==
[2018-01-18] MEDS ORDERED: PROPOFOL 10 MG/ML VIAL IV ONE (13:32)
[2018-01-18] MEDS ORDERED: LIDOCAINE 2% MDV (20MG/ML) 20ML VIAL IV ONE (13:32)
--- NOTE | 2018-01-19 08:40 | Operative Note ---
DATE OF SURGERY: OPERATION: 1. ESOPHAGOGASTRODUODENOSCOPY with photo. 2. COLONOSCOPY with cold forceps polypectomy. PREOPERATIVE DIAGNOSIS: Change in bowel habits and epigastric pain, heartburn, nausea, vomiting. POSTOPERATIVE DIAGNOSES: 1. Small hiatal hernia. 2. Mild GE junction erythema. 3. Sigmoid diverticulosis. 4. Diminutive sigmoid colon polyp. PROCEDURE: After informed consent was obtained from the patient, she was placed in the left lateral decubitus position in the endoscopy suite, sedated and monitored by the department of anesthesia. A well-lubricated [id number] gastroscope was placed in the posterior oropharynx and under direct visualization passed to the proximal esophagus. The endoscope was advanced through the proximal, mid, and distal esophagus. The GE junction demonstrated mild erythema but was otherwise unremarkable. There was a small hiatal hernia. The subdiaphragmatic stomach, gastric body, antrum, pylorus, duodenal bulb and sweep were unremarkable. J-turn views of the proximal stomach revealed the hiatal hernia but no other abnormalities. No ulcers or other irregularity was noted. The endoscope was straightened and removed from the patient with no new findings noted. Digital rectal exam revealed no palpable mass. A well-lubricated [id number] colonoscope was inserted into the rectum and advanced to the cecum. Preparation quality was excellent. The cecum, cecal bulb, ascending colon, transverse colon, and descending colon were unremarkable. The sigmoid colon demonstrated scattered diverticula. There was also diminutive sigmoid colon polyp which was removed with a cold forceps. The rectum was unremarkable in forward and in J-turn views. The endoscope was straightened, the rectal ampulla deflated, and the endoscope was removed. RECOMMENDATIONS: The patient should follow a high-fiber diet. Continue on her proton pump inhibitor. She should stop smoking. As always, thank you for allowing me to participate in the healthcare of your patients. CC: Dr. Hamida PATEL
== END 2018-01-18 15:27 | disposition home or self-care (01) ==
LOC: HOP 13:31
PROVIDERS: ATTEND Internal Medicine Gastroenterology
DX: R19.4 Change in bowel habit (principal); R10.13 Epigastric pain; R12 Heartburn; R11.0 Nausea; R11.10 Vomiting, unspecified; K57.30 Diverticulosis of large intestine without perforation or abscess without bleeding; D12.5 Benign neoplasm of sigmoid colon; K44.9 Diaphragmatic hernia without obstruction or gangrene; K31.89 Other diseases of stomach and duodenum; E78.00 Pure hypercholesterolemia, unspecified; K21.9 Gastro-esophageal reflux disease without esophagitis; I10 Essential (primary) hypertension; E03.9 Hypothyroidism, unspecified; J44.9 Chronic obstructive pulmonary disease, unspecified
CPT/HCPCS: 81025

== ENCOUNTER 2018-03-30 11:13 | Emergency (ER) | payer MEDICAID ==
[2018-03-30] MEDS ORDERED: 0.9 % SODIUM CHLORIDE 1,000 ML BAG IV ONE (11:28)
--- NOTE | 2018-03-30 11:33 | Emergency Department Record ---
History of Present Illness - General Chief Complaint: Dizziness Stated Complaint: DIZZINESS Time Seen by Provider: 03/30/18 11:23 Source: Patient Mode of Arrival: Ambulatory Limitations: No limitations - History of Present Illness Initial Comments: The patient is here due to not feeling well for 2 days. She has had a dry cough with congestion and has felt dizzy and lightheaded for 2 days. She states she feels weak with standing and also like she is off balance at times. The patient was over at the and was found to have a low BP so she was sent to the ER. She does take Lasix for HTN. MD Complaint: Dizziness, Lightheadedness Onset/Timin -: Days(s) Timing: Sudden onset Description: Lightheadedness History of Same: Yes History of Trauma: No Improves With: Nothing Worsens With: Nothing Associated Symptoms: Cough - [place] Coma Scale Eye Response: (4) Open spontaneously Motor Response: (6) Obeys commands Verbal Response: (5) Oriented [place] Total: 15 - Related Data Previous Rx's Medication Instructions Recorded Benzonatate [Tessalon] 1 cap PO Q8H PRN #20 cap 03/30/18 Allergies Allergy/AdvReac Type Severity Reaction Status Date / Time penicillin V Allergy Severe ANAPHYLAXIS Verified 03/30/18 11:19 Travel Screening - Travel/Exposure Within Last 30 Days Have you traveled within the last 30 days?: No Past Medical History - SOCIAL HISTORY Smoking Status: Light tobacco smoker (<10/day) Alcohol Use: None Drug Use: None - RESPIRATORY Hx Respiratory Disorders: Yes Hx COPD: Yes - CARDIOVASCULAR Hx Cardio Disorders: Yes Hx Hypertension: Yes - NEURO Hx Neuro Disorders: Yes Hx CVA: Yes - GI Hx GI Disorders: No - Hx Genitourinary Disorders: No - ENDOCRINE Hx Endocrine Disorders: Yes Hx Thyroid Disease: Yes (hypothyroid) - MUSCULOSKELETAL Hx Musculoskeletal Disorders: Yes Hx Back Injury: Yes - PSYCH Hx Psych Problems: Yes Comment:: Alcoholism - HEMATOLOGY/ONCOLOGY Hx Hematology/Oncology Disorders: No Family Medical History Any Significant Family History?: Yes Hx Cancer: Father Hx Diabetes: Grandparents Hx Heart Disease: Father Hx HTN: Father Physical Exam - General General Appearance: Alert, Oriented x3, Cooperative, No acute distress - Head Head exam: Atraumatic, Normocephalic, Normal inspection - Eye Eye exam: Normal appearance, PERRL, EOMI. negative: Conjunctival injection - ENT ENT exam: Normal exam, Mucous membranes moist, Normal external ear exam, Normal orophraynx, TM's normal bilaterally Throat exam: Normal inspection. negative: Tonsillar erythema, Tonsillar exudate - Neck Neck exam: Normal inspection, Full ROM. negative: Lymphadenopathy, Meningismus , Tenderness - Respiratory Respiratory exam: Normal lung sounds bilaterally. negative: Respiratory distress - Cardiovascular Cardiovascular Exam: Regular rate, Normal rhythm, Normal heart sounds - GI/Abdominal GI/Abdominal exam: Soft, Normal bowel sounds. negative: Tenderness - Extremities Extremities exam: Normal inspection, Full ROM, Normal capillary refill. negative: Tenderness - Back Back exam: Reports: Normal inspection - Neurological Neurological exam: Alert, Normal gait, Oriented X3. negative: Abnormal gait, Altered, Motor sensory deficit - Psychiatric Psychiatric exam: Anxious Course Vital Signs 03/30/18 11:14 Temperature 98.4 F Pulse Rate 90 Respiratory 18 Rate Blood Pressure 101/60 Pulse Ox 95 - Reevaluation(s) Reevaluation #1: The patient is doing a lot better after the liter of fluid. She is up ambulating with no dizziness or weakness. I did discuss the lab results and BP with the patient's PCP Dr. Buckner and she would like to stop the patient's BP medicines and she will see her in the office early next week. I also did discuss the CXR report with Dr. Buckner and she will repeat the exam in 1-2 weeks. 03/30/18 13:02 03/30/18 13:05 Medical Decision Making - Data Complexity MDM Data: Labs Ordered and/or Reviewed, X-Ray Ordered and/or Reviewed, EKG Ordered and/or Reviewed - Lab Data Result diagrams: 03/30/18 11:45 03/30/18 11:45 - EKG Data -: EKG Interpreted by Me EKG: No Acute Changes, Normal EKG (Poss short [place] interval.) - Radiology Data Radiology results: Report reviewed (CXR: Neg for acute infiltrate. Poss vague 2 cm density R lateral mid lung per Rad. Rec: repeat xray in 2 weeks.) Disposition Disposition: Discharge Clinical Impression: Anxiety Disposition: Home, Self-Care Condition: (2) Stable Instructions: Anxiety (ED) Additional Instructions: Please stop the Lisinopril for 3 days and take Tessalon for the cough. Please see your family doctor early next week for recheck and please call for an appointment today. Return to the ER for any worsening symptoms, pain, fever, or visual changes. Prescriptions: Benzonatate [Tessalon] 1 cap PO Q8H PRN #20 cap PRN Reason: Cough Forms: Patient Portal Access Time of Disposition: 13:05 Quality - Quality Measures Quality Measures: N/A - Blood Pressure Screening View Details: Yes Does Patient Have Any of the Following: No Blood Pressure Classification: Normal BP Reading Systolic Measurement: 101 Diastolic Measurement: 60 Screening for High Blood Pressure: < Normal BP, F/U Not Required > [G8783]
[2018-03-30 11:51] LABS: BASO % 0.3 % (0-6); GRAN % 60.5 % (47-80); HEMATOCRIT 41.3 % (35.0-47.0); HEMOGLOBIN 13.1 gm/dl (11.6-16.0); LYMPH % 24.3 % (16-45); MEAN CELL VOLUME 94.3 fl (81-97); MEAN CORPUSCULAR HEMOGLOBIN 29.9 pg (27-33); MEAN CORPUSCULAR HGB CONC 31.7 g/dl (32-36); MEAN PLATELET VOLUME 9.2 fl (7.4-10.4); MONO % 14.9 % (0-9); PLATELET COUNT 168 K/uL (130-400); RED BLOOD COUNT 4.38 M/uL (3.80-5.40); RED CELL DISTRIBUTION WIDTH 15.6 % (11.5-14.5)
[2018-03-30 12:09] LABS: C-REACTIVE PROTEIN 3.04 mg/dL (<0.5)
[2018-03-30 12:20] LABS: THYROID STIMULATING HORMONE 9.04 uIU/mL (0.270-4.20)
[2018-03-30 12:25] LABS: BLOOD UREA NITROGEN 9 mg/dL (6-20); CREATININE 0.7 mg/dL (0.5-0.9); EST GLOMERULAR FILTRATION RATE > 60 mL/min
[2018-03-30 12:26] LABS: TOTAL PROTEIN 7.5 g/dL (6.6-8.7)
[2018-03-30 12:28] LABS: GLUCOSE,RANDOM 98 mg/dL (74-109)
[2018-03-30 12:31] LABS: ALB/GLOB RATIO 1.1 (1.1-1.8); ALBUMIN 3.9 g/dL (4.0-5.0); ALKALINE PHOSPHATASE 93 U/L (45-87); ALT/SGPT 43 U/L (<33); AST/SGOT 78 U/L (10.0-35.0)
== END 2018-03-30 13:25 | disposition home or self-care (01) ==
LOC: ER 11:13
DX: I95.9 Hypotension, unspecified (principal); R42 Dizziness and giddiness; R05 Cough; F41.9 Anxiety disorder, unspecified; J44.9 Chronic obstructive pulmonary disease, unspecified; I10 Essential (primary) hypertension; F17.210 Nicotine dependence, cigarettes, uncomplicated
CPT/HCPCS: 71046; 80053; 84145; 84443; 85025; 86140; 96360; 99284; J7030